=== PATIENT | female | born 1960 | race Caucasian/White ===

== ENCOUNTER 2018-06-22 06:56 | Emergency (ER) | payer MEDICAID ==
[~2018-06-22] VITALS: Ht 165.1 cm; Wt 70.3 kg
[2018-06-22 07:28] VITALS: BP 162/87
== END 2018-06-22 08:42 | disposition home or self-care (01) ==
LOC: ER 06:56
DX: R22.42 Localized swelling, mass and lump, left lower limb (principal); I10 Essential (primary) hypertension
CPT/HCPCS: 93971